=== PATIENT | male | born 1950 | race American Indian/Alaskan Native ===

== ENCOUNTER 2016-12-22 12:05 | Inpatient (IN) | payer MEDICARE, OTHER ==
[2016-12-21 10:19] LABS: Eosinophils % (Auto) 2.4 % (0.0-4.3); Hemoglobin 14.7 gm/dl (11.8-15.2); Mean Corpuscular HGB Conc 33 % (32-34); Mean Corpuscular Hemoglobin 27 pg (28-32); Mean Corpuscular Volume 83 fl (84-94); Platelet Count 213 K/mm3 (140-440); Red Blood Count 5.45 M/mm3 (3.65-5.03); Red Cell Distribution Width 14.2 % (13.2-15.2); White Blood Count 5.3 K/mm3 (4.5-11.0)
--- NOTE | 2016-12-21 10:19 | Anesthesia Consultation ---
Anesthesia Consult and Med Hx Date of service: 12/21/16 - Airway Anesthetic Teeth Evaluation: Good ROM Head & Neck: Adequate Mental/Hyoid Distance: Adequate Mallampati Class: Class III Intubation Access Assessment: Possibly Difficult - Pre-Operative Health Status ASA Pre-Surgery Classification: ASA3 Proposed Anesthetic Plan: General - Pulmonary Hx Smoking: Yes (former) - Cardiovascular System Hx Hypertension: Yes Hx Coronary Artery Disease: No (high cholesterol) - Central Nervous System Hx Psychiatric Problems: No - Endocrine Hx Renal Disease: Yes (BPH, bladder stones) Hx Non-Insulin Dependent Diabetes: Yes - Other Systems Hx Cancer: No Hx Obesity: Yes (BMI 37.7)
[2016-12-21 10:32] LABS: Partial Thromboplastin Time 30.8 Sec. (24.2-36.6)
[2016-12-21 10:33] LABS: Alanine Aminotransferase 21 units/L (7-56); Albumin 3.7 g/dL (3.9-5); Albumin/Globulin Ratio 1.1 %; Alkaline Phosphatase 62 units/L (35-129); Anion Gap 17 mmol/L; BUN/Creatinine Ratio 24.28; Blood Urea Nitrogen 17 mg/dL (9-20); Calcium 8.8 mg/dL (8.4-10.2); Carbon Dioxide 28 mmol/L (22-30); Chloride 98.5 mmol/L (98-107); Glucose 165 mg/dL (75-100); Potassium 3.2 mmol/L (3.6-5.0); Sodium 140 mmol/L (137-145); Total Protein 7.2 g/dL (6.3-8.2)
[~2016-12-22 12:05] MED LIST: NACL 0.9% 1000 ML 1,000 ML IV SCH; PEPCID IV NR; VERSED IV NR
[2016-12-22] MEDS ORDERED: ZOFRAN IV NR (13:11)
[2016-12-22] MEDS ORDERED: NACL BACTERIOSTATIC INFILTRATI ONE (13:32)
[2016-12-22] MEDS ORDERED: SUBLIMAZE ONE (13:55)
[2016-12-22] MEDS ORDERED: DIPRIVAN 10 MG/ML IV ONE (13:56)
[2016-12-22] MEDS ORDERED: XYLOCAINE MPF 2% ONE (13:56)
--- NOTE | 2016-12-22 14:28 | Anesthesia Day of Surgery ---
Anesthesia Day of Surgery - Day of Surgery Patient Examined: Yes Patient H&P Reviewed: Yes Patient is NPO: Yes
[2016-12-22] MEDS ORDERED: DECADRON ONE (15:00)
[2016-12-22] MEDS ORDERED: ANCEF/STERILE WATER 2 GM/20 ML IV NR (15:00)
[2016-12-22] MEDS ORDERED: ZOFRAN ONE (15:01)
[2016-12-22] MEDS ORDERED: SORBITOL-MANNITOL IRRIG IR ONE ×2 (15:02)
[2016-12-22] MEDS ORDERED: NACL 0.9% 1000 ML 1,000 ML ONE ×2 (15:49→17:54)
[2016-12-22] MEDS ORDERED: AMBIEN PO PRN (16:21)
[2016-12-22] MEDS ORDERED: D50W (25GM) Syringe IV PRN (16:21)
[2016-12-22] MEDS ORDERED: ZOFRAN IV PRN (16:21)
--- NOTE | 2016-12-22 16:21 | Short Stay Summary ---
Short Stay Documentation Date of service: 12/22/16 - History H&P: obtained from office - Allergies and Medications Current Medications: Allergies No Known Allergies Allergy (Unverified 12/21/16 06:39) Home Medications Medication Instructions Recorded Confirmed Last Taken Type Amlodipine/Valsartan/Hcthiazid 1 tab PO DAILY 12/21/16 12/21/16 12/21/16 23:45 History [Exforge Hct 10-160-25 mg Tab] AtorvaSTATin [Lipitor] 40 mg PO QHS 12/21/16 12/21/16 12/21/16 History Dapagliflozin Propanediol [Farxiga] 10 mg PO DAILY 12/21/16 12/21/16 12/21/16 History Glimepiride [Amaryl] 4 mg PO BID 12/21/16 12/21/16 12/21/16 History Active Medications Cefazolin Sodium (Ancef/Sterile Water 2 Gm/20 Ml) 2 gm IV PREOP NR Stop: 12/22/16 23:00 Hydromorphone HCl (Dilaudid) 0.5 mg IV Q10MIN PRN PRN Reason: Pain , Severe (7-10) Stop: 12/22/16 23:59 Sodium Chloride (Nacl 0.9% 1000 Ml) 1,000 mls @ 100 mls/hr IV DIRECT FLETCHER Last Admin: 12/22/16 13:53 Dose: 100 mls/hr Midazolam HCl (Versed) 2 mg IV PREOP NR Stop: 12/22/16 23:59 Last Admin: 12/22/16 14:04 Dose: 2 mg Ondansetron HCl (Zofran) 4 mg IV ONCE NR Stop: 12/22/16 23:59 - Brief post op/procedure progress note Date of procedure: 12/22/16 Pre-op diagnosis: BPH, BLADDER STONES Post-op diagnosis: same Procedure: cysto, cystogram, TURP Anesthesia: GETA Surgeon: ANDREAS RAYMOND Estimated blood loss: minimal Pathology: list Specimen disposition: to lab Condition: stable (PROSTATE CHIPS) - Hospital course Hospital course: CIPRO & NORCO ON CHART see dc summary - Disposition Disposition: DC-01 TO HOME OR SELFCARE Short Stay Discharge Plan Follow up with: SHEA OLSON MD [Primary Care Provider] - 7 Days
[2016-12-22] MEDS: DILAUDID IV PRN ×5 (16:30→23:21)
--- NOTE | 2016-12-22 16:39 | Post Anesthesia Evaluation ---
- Post Anesthesia Evaluation Patient Participated: Yes Airway Patent: Yes Stable Respiratory Function: Yes Nausea/Vomiting: No Temp > 96.8F: Yes Pain Manageable: Yes Adequeate Hydration: Yes Anesthesia Complications: No
[2016-12-22] MEDS ORDERED: NEO SYNEPHRINE/NS Syringe(OR USE) IV ONE (17:00)
[2016-12-22 17:28] LABS: Basophils % (Auto) 0.4 % (0.0-1.8); Eosinophils % (Auto) 0.5 % (0.0-4.3); Hematocrit 39.3 % (35.5-45.6); Hemoglobin 12.9 gm/dl (11.8-15.2); Mean Corpuscular HGB Conc 33 % (32-34); Mean Corpuscular Hemoglobin 28 pg (28-32); Mean Corpuscular Volume 83 fl (84-94); Platelet Count 183 K/mm3 (140-440); Red Blood Count 4.71 M/mm3 (3.65-5.03); Red Cell Distribution Width 14.2 % (13.2-15.2); White Blood Count 5.9 K/mm3 (4.5-11.0)
[2016-12-22 17:41] LABS: Anion Gap 14 mmol/L; Blood Urea Nitrogen 14 mg/dL (9-20); Carbon Dioxide 29 mmol/L (22-30); Chloride 100.5 mmol/L (98-107); Glucose 133 mg/dL (75-100); Potassium 3.2 mmol/L (3.6-5.0); Sodium 140 mmol/L (137-145)
--- NOTE | 2016-12-22 21:51 | Operative Report ---
PREOPERATIVE DIAGNOSIS: Benign prostatic hypertrophy, multiple bladder stones, large volume. POSTOPERATIVE DIAGNOSES: Benign prostatic hypertrophy, multiple bladder stones, large volume. PROCEDURE: Cystoscopy, electrohydraulic lithotripsy of multiple bladder stones, transurethral resection of the prostate, cystogram. SURGEON: Simon Marquez MD ANESTHESIA: General. ESTIMATED BLOOD LOSS: 50 mL. FLUIDS: Crystalloid. COMPLICATIONS: No complications. INDICATIONS: This patient is a 66-year-old gentleman seen in the office for hematuria. Evaluation revealed bladder stones and enlarged prostate. Risks, benefits, and complications were explained. The patient agreed to proceed with surgical intervention. He also has a history of diabetes. DESCRIPTION OF PROCEDURE: The patient was taken to the operative suite, placed in a supine position. After adequate general anesthesia, placed in a dorsal lithotomy position, prepped and draped in a sterile fashion. Rectal exam was benign. Cystourethroscopy was performed with 24-Beninese Storz cystoscope. No urethral abnormalities. His prostate displayed trilobar prostatic obstruction. His bladder had multiple large bladder stones, probably a volume of 5 cm total. Due to edema, the ureteral orifices could not be appreciated. Using a 9 Beninese EHL probe starting at energy of 2 and a rate of 5, electrohydraulic lithotripsy was performed that over approximately 15-20 minutes, I was able to break up the stone to allow removal with the MyWerxik evacuator. At this point, I used the 27-Beninese resectoscope and loop with the cutting and coag on 160 and 60. Transurethral resection of the prostate was performed in a systematic fashion removing the median lobe and the right and left lateral lobes respectively. The chips were evacuated out with the Ellik evacuator. Upon completion, the veru and external sphincter were intact. A 24-Beninese 3-way catheter with 50 mL in the balloon was left indwelling and irrigated clear, had pink-tinged urine. He was extubated and taken to recovery room. He will be observed overnight and go home on [employer] and [place]. JOB# [id number] C/NTS
[2016-12-22] MEDS: NACL 0.9% 1000 ML 1,000 ML IV SCH (22:20)
[2016-12-22] MEDS: NACL 0.9% IR SCH (22:21)
--- NOTE | 2016-12-22 23:51 | Consultation ---
History of Present Illness - Reason for Consult Consult date: 12/22/16 Medical management Requesting physician: ANDREAS RAYMOND - History of Present Illness S/p Turp Past History Past Medical History: diabetes, hypertension, hyperlipidemia Past Surgical History: TURP Social history: lives with family, smoking Family history: hypertension Medications and Allergies Allergies Allergy/AdvReac Type Severity Reaction Status Date / Time No Known Allergies Allergy Unverified 12/21/16 06:39 Home Medications Medication Instructions Recorded Confirmed Last Taken Type Amlodipine/Valsartan/Hcthiazid 1 tab PO DAILY 12/21/16 12/21/16 12/21/16 23:45 History [Exforge Hct 10-160-25 mg Tab] AtorvaSTATin [Lipitor] 40 mg PO QHS 12/21/16 12/21/16 12/21/16 History Dapagliflozin Propanediol [Farxiga] 10 mg PO DAILY 12/21/16 12/21/16 12/21/16 History Glimepiride [Amaryl] 4 mg PO BID 12/21/16 12/21/16 12/21/16 History Active Meds: Active Medications Acetaminophen/Hydrocodone Bitart ([place] 5/325) 2 each PO Q4H PRN PRN Reason: Pain, Moderate (4-6) Amlodipine Besylate (Norvasc) 10 mg PO DAILY FLETCHER Atorvastatin Calcium (Lipitor) 40 mg PO QHS FLETCHER Dextrose (D50w (25gm) Syringe) 50 ml IV PRN PRN PRN Reason: Hypoglycemia Glimepiride (Amaryl) 4 mg PO BID FLETCHER Hydrochlorothiazide (Hctz) 25 mg PO QDAY FLETCHER Hydromorphone HCl (Dilaudid) 0.5 mg IV Q10MIN PRN PRN Reason: Pain , Severe (7-10) Stop: 12/22/16 23:59 Last Admin: 12/22/16 23:21 Dose: 0.5 mg Sodium Chloride (Nacl 0.9% 1000 Ml) 1,000 mls @ 100 mls/hr IV DIRECT FLETCHER Last Admin: 12/22/16 13:53 Dose: 100 mls/hr Cefazolin Sodium (Ancef/Ns 1 Gm/50 Ml) 1 gm in 50 mls @ 100 mls/hr IV Q8H FLETCHER PRN Reason: Protocol Stop: 12/23/16 08:29 Sodium Chloride (Nacl 0.9% 1000 Ml) 1,000 mls @ 100 mls/hr IV DIRECT FLETCHER Last Admin: 12/22/16 22:20 Dose: 100 mls/hr Insulin Aspart (Novolog) 0 units SUB-Q ACHS FLETCHER PRN Reason: Protocol Midazolam HCl (Versed) 2 mg IV PREOP NR Stop: 12/22/16 23:59 Last Admin: 12/22/16 14:04 Dose: 2 mg Miscellaneous Medication (Dapagliflozin Propanediol [Farxiga]) 10 mg PO DAILY FLETCHER Morphine Sulfate (Morphine) 2 mg IV Q4H PRN PRN Reason: Pain, Moderate (4-6) Ondansetron HCl (Zofran) 4 mg IV ONCE NR Stop: 12/22/16 23:59 Ondansetron HCl (Zofran) 4 mg IV Q8H PRN PRN Reason: Nausea And Vomiting Sodium Chloride (Nacl 0.9%) 2,000 ml IR DIRECT FLETCHER Last Admin: 12/22/16 22:21 Dose: 2,000 ml Valsartan (Diovan) 160 mg PO QDAY FLETCHER Zolpidem Tartrate (Ambien) 5 mg PO QHS PRN PRN Reason: Sleep Review of Systems All systems: negative Exam - Constitutional Vitals: Temp Pulse Resp BP Pulse Ox 97.5 F L 73 16 122/67 95 12/22/16 20:00 12/22/16 20:00 12/22/16 23:21 12/22/16 20:00 12/22/16 20:00 General appearance: Present: no acute distress, well-nourished - EENT Eyes: Present: PERRL ENT: hearing intact, clear oral mucosa - Neck Neck: Present: supple, normal ROM - Respiratory Respiratory effort: normal Respiratory: bilateral: CTA - Cardiovascular Heart Sounds: Present: S1 & S2. Absent: rub, click - Extremities Extremities: pulses symmetrical, No edema Peripheral Pulses: within normal limits - Abdominal General gastrointestinal: Present: soft, non-tender, non-distended, normal bowel sounds Male genitourinary: Present: normal - Integumentary Integumentary: Present: clear, warm, dry - Musculoskeletal Musculoskeletal: gait normal, strength equal bilaterally - Psychiatric Psychiatric: appropriate mood/affect, intact judgment & insight - Neurologic Neurologic: CNII-XII intact, moves all extremities Results - Labs CBC & Chem 7: 12/24/16 05:53 12/23/16 11:06 Labs: Abnormal lab results 12/22/16 12/22/16 12/22/16 Range/Units 13:48 16:53 17:16 MCV 83 L (84-94) fl Lymph # 1.1 L (1.2-5.4) K/mm3 Seg Neutrophils % 76.6 H (40.0-70.0) % Potassium (3.6-5.0) mmol/L Glucose (75-100) mg/dL POC Glucose 170 H 122 H (70-105) Calcium (8.4-10.2) mg/dL 12/22/16 12/22/16 Range/Units 17:16 21:22 MCV (84-94) fl Lymph # (1.2-5.4) K/mm3 Seg Neutrophils % (40.0-70.0) % Potassium 3.2 L (3.6-5.0) mmol/L Glucose 133 H (75-100) mg/dL POC Glucose 164 H (70-105) Calcium 8.0 L (8.4-10.2) mg/dL Assessment and Plan - Patient Problems (1) S/P TURP Status: Acute Plan to address problem: Bleeding present but better (2) HTN (hypertension) Status: Chronic Qualifiers: Hypertension type: essential hypertension Qualified Code(s): I10 - Essential (primary) hypertension Plan to address problem: Cont Antihypertensives (3) HLD (hyperlipidemia) Status: Chronic Qualifiers: Hyperlipidemia type: mixed hyperlipidemia Qualified Code(s): E78.2 - Mixed hyperlipidemia Plan to address problem: Cont Statins (4) T2DM (type 2 diabetes mellitus) Status: Chronic Qualifiers: Diabetes mellitus complication status: without complication Diabetes mellitus complication detail: D Diabetic retinopathy severity: D Proliferative retinopathy type: P Diabetes mellitus macular edema: D Diabetes mellitus laborer marine terminal insulin use: D Laterality: L Chronic kidney disease stage: C Plan to address problem: Cont Accucheks and coverage (5) DVT prophylaxis Status: Acute Plan to address problem: Scd's
[2016-12-23] MEDS: NOVOLOG SUB-Q SCH ×5 (02:08→21:37)
[2016-12-23] MEDS: AMARYL PO SCH ×3 (02:09→21:37)
[2016-12-23 03:09] LABS: Basophils % (Auto) 0.2 % (0.0-1.8); Hematocrit 40.5 % (35.5-45.6); Hemoglobin 13.5 gm/dl (11.8-15.2); Mean Corpuscular HGB Conc 33 % (32-34); Mean Corpuscular Hemoglobin 28 pg (28-32); Mean Corpuscular Volume 83 fl (84-94); Platelet Count 176 K/mm3 (140-440); Red Blood Count 4.89 M/mm3 (3.65-5.03); Red Cell Distribution Width 14.6 % (13.2-15.2); White Blood Count 9.7 K/mm3 (4.5-11.0)
[2016-12-23 03:23] LABS: Anion Gap 15 mmol/L; BUN/Creatinine Ratio 18.57; Blood Urea Nitrogen 13 mg/dL (9-20); Calcium 7.7 mg/dL (8.4-10.2); Carbon Dioxide 26 mmol/L (22-30); Chloride 98.2 mmol/L (98-107); Glucose 152 mg/dL (75-100); Potassium 3.4 mmol/L (3.6-5.0); Sodium 136 mmol/L (137-145)
[2016-12-23] MEDS: NACL 0.9% IR SCH ×4 (03:27→21:45)
[2016-12-23] MEDS: ANCEF/NS 1 GM/50 ML 1 GM/50 ML BAG IV SCH ×2 (05:45→17:21)
[2016-12-23] MEDS: MORPHINE IV PRN (06:19)
[2016-12-23] MEDS ORDERED: NACL 0.9% 1,000 ML IR ONE ×4 (09:32→17:24)
[2016-12-23] MEDS ORDERED: HCTHIAZID PO SCH (10:00)
[2016-12-23] MEDS ORDERED: AMLODIPINE PO SCH (10:00)
[2016-12-23] MEDS ORDERED: NON-FORMULARY (Dapagliflozin Propanediol [Farxiga] 10 MG) PO SCH (10:00)
[2016-12-23] MEDS ORDERED: VALSARTAN PO SCH (10:00)
--- NOTE | 2016-12-23 10:05 | Progress Note ---
Assessment and Plan fiorella occ bloody cath manually irrigared clots out adv diet observe x 24 hrs Subjective Date of service: 12/23/16 Principal diagnosis: post turp Objective - Constitutional Vitals: Vital Signs - 12hr 12/22/16 12/22/16 12/22/16 23:21 23:47 23:51 Temperature 97.2 F L Pulse Rate 74 Respiratory 16 20 16 Rate Blood Pressure 128/71 O2 Sat by Pulse 98 Oximetry 12/23/16 12/23/16 04:23 08:14 Temperature 97.8 F 97.5 F L Pulse Rate 73 Respiratory 20 18 Rate Blood Pressure 130/68 127/66 O2 Sat by Pulse 98 Oximetry General appearance: Present: no acute distress - Respiratory Respiratory effort: normal Extremities: no ischemia - Gastrointestinal General gastrointestinal: Present: soft, non-tender - Labs CBC & Chem 7: 12/23/16 02:52 12/23/16 02:52 Labs: Abnormal lab results 12/22/16 12/22/16 12/22/16 Range/Units 13:48 16:53 17:16 MCV 83 L (84-94) fl Lymph % (Auto) (13.4-35.0) % Lymph # 1.1 L (1.2-5.4) K/mm3 Seg Neutrophils % 76.6 H (40.0-70.0) % Seg Neutrophils # (1.8-7.7) K/mm3 Potassium (3.6-5.0) mmol/L Creatinine (0.8-1.5) mg/dL Glucose (75-100) mg/dL POC Glucose 170 H 122 H (70-105) Calcium (8.4-10.2) mg/dL 12/22/16 12/22/16 12/23/16 Range/Units 17:16 21:22 02:52 MCV 83 L (84-94) fl Lymph % (Auto) 10.6 L (13.4-35.0) % Lymph # 1.0 L (1.2-5.4) K/mm3 Seg Neutrophils % 82.1 H (40.0-70.0) % Seg Neutrophils # 8.0 H (1.8-7.7) K/mm3 Potassium 3.2 L (3.6-5.0) mmol/L Creatinine (0.8-1.5) mg/dL Glucose 133 H (75-100) mg/dL POC Glucose 164 H (70-105) Calcium 8.0 L (8.4-10.2) mg/dL 12/23/16 Range/Units 02:52 MCV (84-94) fl Lymph % (Auto) (13.4-35.0) % Lymph # (1.2-5.4) K/mm3 Seg Neutrophils % (40.0-70.0) % Seg Neutrophils # (1.8-7.7) K/mm3 Potassium (3.6-5.0) mmol/L Creatinine 0.7 L (0.8-1.5) mg/dL Glucose 152 H (75-100) mg/dL POC Glucose (70-105) Calcium 7.7 L (8.4-10.2) mg/dL
--- NOTE | 2016-12-23 10:18 | Fluoroscopy Report ---
CYSTOGRAM STATIC, ONE VIEW History: Bladder stones. Findings: Fluoroscopy was provided by radiology during cystogram by urology. 3 fluoroscopic images were captured. The images demonstrate at least 2 large filling defects measuring up to 4-5 cm which could represent bladder stones. There is mild trabeculation of the bladder wall. No evidence for extravasation or reflux into the ureters. Impression: Multiple bladder stones.
[2016-12-23] MEDS: NORCO 5/325 PO PRN ×2 (10:58→19:19)
[2016-12-23] MEDS: DIOVAN PO SCH (10:59)
[2016-12-23] MEDS: HCTZ PO SCH (10:59)
[2016-12-23] MEDS: NORVASC PO SCH (11:00)
[2016-12-23 11:59] LABS: Alanine Aminotransferase 14 units/L (7-56); Albumin 3.2 g/dL (3.9-5); Albumin/Globulin Ratio 0.9 %; Alkaline Phosphatase 55 units/L (35-129); Anion Gap 16 mmol/L; BUN/Creatinine Ratio 16.25; Blood Urea Nitrogen 13 mg/dL (9-20); Calcium 8.1 mg/dL (8.4-10.2); Carbon Dioxide 26 mmol/L (22-30); Chloride 100.1 mmol/L (98-107); Glucose 198 mg/dL (75-100); Potassium 3.3 mmol/L (3.6-5.0); Sodium 139 mmol/L (137-145); Total Protein 6.8 g/dL (6.3-8.2)
[2016-12-23] MEDS: K-DUR PO SCH (13:25)
--- NOTE | 2016-12-23 17:29 | Event Note ---
Date: 12/23/16 cysto, cystogram, TURP, removal large bladder stone>5cm 5pm----irrigates well---pink, no clots, + spasm check cbc in am
[2016-12-23] MEDS: NACL 0.9% 1000 ML 1,000 ML IV SCH (21:50)
--- NOTE | 2016-12-23 22:02 | Progress Note ---
Assessment and Plan - Patient Problems (1) S/P TURP Status: Acute Plan to address problem: Bleeding present but better (2) HTN (hypertension) Status: Chronic Qualifiers: Hypertension type: essential hypertension Qualified Code(s): I10 - Essential (primary) hypertension Plan to address problem: Cont Antihypertensives (3) HLD (hyperlipidemia) Status: Chronic Qualifiers: Hyperlipidemia type: mixed hyperlipidemia Qualified Code(s): E78.2 - Mixed hyperlipidemia Plan to address problem: Cont Statins (4) T2DM (type 2 diabetes mellitus) Status: Chronic Qualifiers: Diabetes mellitus complication status: without complication Diabetes mellitus complication detail: D Diabetic retinopathy severity: D Proliferative retinopathy type: P Diabetes mellitus macular edema: D Diabetes mellitus terminal operations manager insulin use: D Laterality: L Chronic kidney disease stage: C Plan to address problem: Cont Accucheks and coverage (5) DVT prophylaxis Status: Acute Plan to address problem: Scd's History Interval history: Post op doing well.S/p Turp with bleeding which has subsided Hospitalist Physical - Constitutional Vitals: Temp Pulse Resp BP Pulse Ox 98.7 F 80 18 122/64 98 12/23/16 17:00 12/23/16 17:00 12/23/16 17:00 12/23/16 17:00 12/23/16 04:23 General appearance: Present: no acute distress - EENT Eyes: Present: PERRL, EOM intact - Neck Neck: Present: supple, normal ROM, rigidity - Respiratory Respiratory effort: normal Respiratory: bilateral: CTA - Cardiovascular Heart rate: 78 Rhythm: regular - Extremities Extremities: no ischemia, pulses intact, pulses symmetrical Peripheral Pulses: within normal limits - Abdominal General gastrointestinal: soft, non-tender, non-distended - Integumentary Integumentary: Present: clear, warm - Psychiatric Psychiatric: appropriate mood/affect, intact judgment & insight, cooperative - Neurologic Neurologic: CNII-XII intact, moves all extremities, gait normal - Allied Health Allied health notes reviewed: nursing, case management Results - Labs CBC & Chem 7: 12/24/16 05:53 12/23/16 11:06 Labs: Laboratory Last Values WBC 9.7 K/mm3 (4.5-11.0) 12/23/16 02:52 RBC 4.89 M/mm3 (3.65-5.03) 12/23/16 02:52 Hgb 13.5 gm/dl (11.8-15.2) 12/23/16 02:52 Hct 40.5 % (35.5-45.6) 12/23/16 02:52 MCV 83 fl (84-94) L 12/23/16 02:52 MCH 28 pg (28-32) 12/23/16 02:52 MCHC 33 % (32-34) 12/23/16 02:52 RDW 14.6 % (13.2-15.2) 12/23/16 02:52 Plt Count 176 K/mm3 (140-440) 12/23/16 02:52 Lymph % (Auto) 10.6 % (13.4-35.0) L 12/23/16 02:52 Metcalfe % (Auto) 7.1 % (0.0-7.3) 12/23/16 02:52 Eos % (Auto) 0.0 % (0.0-4.3) 12/23/16 02:52 Baso % (Auto) 0.2 % (0.0-1.8) 12/23/16 02:52 Lymph # 1.0 K/mm3 (1.2-5.4) L 12/23/16 02:52 Metcalfe # 0.7 K/mm3 (0.0-0.8) 12/23/16 02:52 Eos # 0.0 K/mm3 (0.0-0.4) 12/23/16 02:52 Baso # 0.0 K/mm3 (0.0-0.1) 12/23/16 02:52 Seg Neutrophils % 82.1 % (40.0-70.0) H 12/23/16 02:52 Seg Neutrophils # 8.0 K/mm3 (1.8-7.7) H 12/23/16 02:52 PT 13.1 Sec. (12.2-14.9) 12/21/16 09:14 INR 1.00 (0.87-1.13) 12/21/16 09:14 APTT 30.8 Sec. (24.2-36.6) 12/21/16 09:14 Sodium 139 mmol/L (137-145) 12/23/16 11:06 Potassium 3.3 mmol/L (3.6-5.0) L 12/23/16 11:06 Chloride 100.1 mmol/L (98-107) 12/23/16 11:06 Carbon Dioxide 26 mmol/L (22-30) 12/23/16 11:06 Anion Gap 16 mmol/L 12/23/16 11:06 BUN 13 mg/dL (9-20) 12/23/16 11:06 Creatinine 0.8 mg/dL (0.8-1.5) 12/23/16 11:06 Estimated GFR > 60 ml/min 12/23/16 11:06 BUN/Creatinine Ratio 16.25 % 12/23/16 11:06 Glucose 198 mg/dL (75-100) H 12/23/16 11:06 POC Glucose 189 (70-105) H 12/23/16 18:08 Calcium 8.1 mg/dL (8.4-10.2) L 12/23/16 11:06 Total Bilirubin 0.70 mg/dL (0.1-1.2) 12/23/16 11:06 AST 18 units/L (5-40) 12/23/16 11:06 ALT 14 units/L (7-56) 12/23/16 11:06 Alkaline Phosphatase 55 units/L (35-129) 12/23/16 11:06 Total Protein 6.8 g/dL (6.3-8.2) 12/23/16 11:06 Albumin 3.2 g/dL (3.9-5) L 12/23/16 11:06 Albumin/Globulin Ratio 0.9 % 12/23/16 11:06 Blood Type O POSITIVE 12/22/16 13:29 Antibody Screen Negative 12/22/16 13:29
[2016-12-24] MEDS: NACL 0.9% IR SCH ×2 (02:27→02:28)
[2016-12-24] MEDS: MORPHINE IV PRN (04:27)
[2016-12-24] MEDS: NORCO 5/325 PO PRN ×2 (04:32→12:47)
[2016-12-24 06:16] LABS: Basophils % (Auto) 0.2 % (0.0-1.8); Eosinophils % (Auto) 1.4 % (0.0-4.3); Hematocrit 33.1 % (35.5-45.6); Hemoglobin 11.1 gm/dl (11.8-15.2); Mean Corpuscular HGB Conc 33 % (32-34); Mean Corpuscular Hemoglobin 28 pg (28-32); Mean Corpuscular Volume 84 fl (84-94); Platelet Count 177 K/mm3 (140-440); Red Blood Count 3.97 M/mm3 (3.65-5.03); Red Cell Distribution Width 14.4 % (13.2-15.2); White Blood Count 8.9 K/mm3 (4.5-11.0)
[2016-12-24 08:24] VITALS: BP 105/41
--- NOTE | 2016-12-24 09:00 | Discharge Summary ---
Providers - Providers Date of Admission: 12/22/16 16:21 Date of discharge: 12/24/16 Attending physician: ANDREAS RAYMOND 12/22/16 Consult to Case Management [CONS] Routine Services Needed at Discharge: Home Health Services Notified:: CABLE SPLICER Comment:: [facility]AN MANAGEMENT & ASSIST WITH DAILY NEEDS 12/22/16 16:21 Consult to Physician [CONS] Urgent Consulting Provider: SHEA OLSON Reason For Exam: MGNT OF [facility] & [facility] Place consult to:: DR. SHEA OLSON Notified:: CALLED If yes, spoke with:: Y Primary care physician: SHEA OLSON Hospitalization Reason for admission: bph Procedures: cysto, TRUP, removal baladder stone Hospital course: standard TURP with stone removal post bleeding with regan irrigation clear today home with regan at bedside Disposition: DC-01 TO HOME OR SELFCARE Core Measure Documentation - Palliative Care Palliative Care/ Comfort Measures: Not Applicable - Core Measures Any of the following diagnoses?: none - VTE Discharge Requirements Deep Vein Thrombosis/Pulmonary Embolism Present on Admission: No Has pt received <5 days of overlap therapy or INR<2.0: No Anticoagulant overlap therapy prescribed at discharge: No Contraindication No Overlap Therapy order at DC: Medical Contraindication - Acute AL Discharge Requirements Aspirin at discharge: No Reason for no aspirin on DC: Surgical contraindication JODI/ARB for LVSD if EF <40%: Not Applicable Reason for no JODI/ARB: Medical contraindication Beta max at discharge: No Reason for no beta max on DC: Medical contraindication Statin for LDL = or >100 mg/dl on DC: Not Applicable Reason for no statin on DC: Surgical contraindication - Heart Failure Discharge Requirements JODI/ARB for LVSD if EF <40%: Not Applicable Reason for no JODI/ARB: Medical contraindication Beta max at discharge: No Reason for no beta max on DC: Medical contraindication - Stroke Discharge Requirements Statin for LDL = or >70 mg/dl on DC: Not Applicable Reason for no statin on DC: Medical Contraindication Anticoag for atrial fib/atrial flutter: Not Applicable Reason for no anticoag for AF/F on DC: Not Indicated Antithrombotic for ischemic stroke: No Reason for no antithrombotic on DC: Medical Contraindication Exam - Constitutional Vitals: Temp Pulse Resp BP Pulse Ox 98.4 F 80 20 105/41 97 12/24/16 07:24 12/24/16 07:24 12/24/16 07:24 12/24/16 07:24 12/24/16 07:24 General appearance: Present: no acute distress, well-nourished - EENT Eyes: Present: PERRL ENT: hearing intact, clear oral mucosa - Neck Neck: Present: supple, normal ROM - Respiratory Respiratory effort: normal Respiratory: bilateral: CTA - Cardiovascular Heart Sounds: Present: S1 & S2. Absent: rub, click - Extremities Extremities: pulses symmetrical, No edema Peripheral Pulses: within normal limits - Abdominal General gastrointestinal: Present: soft, non-tender, non-distended, normal bowel sounds Male genitourinary: Present: normal - Integumentary Integumentary: Present: clear, warm, dry - Musculoskeletal Musculoskeletal: gait normal, strength equal bilaterally - Psychiatric Psychiatric: appropriate mood/affect, intact judgment & insight - Neurologic Neurologic: CNII-XII intact, moves all extremities Plan Diet: diabetic Wound: open to air Follow up with: SHEA OLSON MD [Primary Care Provider] - 7 Days
--- NOTE | 2016-12-24 09:03 | Query-Anemia ---
Rosa Constantino____Michelle Date:___12/24/16 Grants Manager/CDS:____Rohit Phone#:__[phone] Exercise your independent professional judgment when responding to this query. Questions asked do not imply a particular answer is desired or expected. We greatly appreciate your clarification on this issue. Clinical Documentation States: 66 year old male was admitted on 12/22/16. The Operative report (Dr. Marquez 12/22/16) states " Preoperative diagnosis: Benign prostatic hypertrophy, multiple bladder stones, large volume Procedure: Cystoscopy, electrohydraulic lithotripsy of multiple bladder stones, transurethral resection of the prostate, cystogram " The hospitalist progress note (Dr. Martinez 12/23/16) states " Assessment and Plan: ( 1) HTN (hypertension) (2) HLD (hyperlipidemia) (3) T2DM (type 2 diabetes mellitus) " Clinical Findings Show: 12/23/16 12/24/16 Hgb: 13.5 11.1 Hct: 40.5 33.1 Etiology: [ ] Precipitous Drop in Hemoglobin [ ] Precipitous Drop in Hematocrit [x ] Anemia due to acute blood loss [ ] Anemia due to chronic blood loss [ ] Anemia secondary to ESRD [ ] Anemia secondary to neoplastic disease [ ] Iron deficiency anemia due to malabsorption [ ] GI Bleed from: [ ] Anemia of chronic disease ,Other: [ ] Other: [ ] Unable to determine [ ] Comment/Explanation: Present on Admission: [ ] Yes (Y) [ ] Clinically undeterminable (W) [x ] No (N) Please also document response in your Progress Notes and/or Discharge Summary and indicate if the condition was present on admission. MTDD
[2016-12-24] MEDS: HCTZ PO SCH (10:50)
[2016-12-24] MEDS: DIOVAN PO SCH (10:50)
[2016-12-24] MEDS: NORVASC PO SCH (10:50)
[2016-12-24] MEDS: AMARYL PO SCH (12:29)
[2016-12-24] MEDS: K-DUR PO SCH (12:29)
== END 2016-12-24 15:45 | disposition home health service (06) | DRG 666 ==
LOC: OR 12:05 → 3B-SURG 16:21
PROVIDERS: ADMIT Urology; ATTEND Urology
PROC: 0VB08ZZ Excision of Prostate, Via Natural or Artificial Opening Endoscopic (ICD-10-PCS; principal; 2016-12-22)
PROC: 0TCB8ZZ Extirpation of Matter from Bladder, Via Natural or Artificial Opening Endoscopic (ICD-10-PCS; 2016-12-22)
DX: N21.0 Calculus in bladder (principal); D62 Acute posthemorrhagic anemia; N40.0 Benign prostatic hyperplasia without lower urinary tract symptoms; E11.9 Type 2 diabetes mellitus without complications; E66.9 Obesity, unspecified; I10 Essential (primary) hypertension; E78.5 Hyperlipidemia, unspecified; Z82.49 Family history of ischemic heart disease and other diseases of the circulatory system; Z68.37 Body mass index [BMI] 37.0-37.9, adult; Z87.891 Personal history of nicotine dependence
CPT/HCPCS: 36415; 74430; 80048; 80053; 82962; 85025; 85610; 85730; 86850; 86900; 86901; 88305; A4217; A9270-GY; C1758; J0690; J1100; J1170; J2250; J2270; J2370; J2405; J2704; J3010; J7030; Q9967

== ENCOUNTER 2020-06-04 14:00 | Outpatient (CLI) | payer MEDICARE, OTHER | END 2020-06-04 14:01 | disposition home or self-care (01) | LOC: WOUND 14:00 | PROVIDERS: ATTEND Surgery | DX: I87.313 Chronic venous hypertension (idiopathic) with ulcer of bilateral lower extremity (principal); L97.812 Non-pressure chronic ulcer of other part of right lower leg with fat layer exposed; L97.822 Non-pressure chronic ulcer of other part of left lower leg with fat layer exposed; I10 Essential (primary) hypertension; Z87.891 Personal history of nicotine dependence | CPT/HCPCS: 11042; G0463; 99205 ==

== ENCOUNTER 2020-06-10 10:25 | Outpatient (CLI) | payer MEDICARE, OTHER ==
[2020-06-10] MEDS ORDERED: LIDOCAINE (4%) 40 MG/ML TOPICAL SOLN 50 ML BOTTLE TP ONE (10:46)
== END 2020-06-10 10:26 | disposition home or self-care (01) ==
LOC: WOUND 10:25
PROVIDERS: ATTEND Surgery
DX: I87.313 Chronic venous hypertension (idiopathic) with ulcer of bilateral lower extremity (principal); L97.812 Non-pressure chronic ulcer of other part of right lower leg with fat layer exposed; L97.822 Non-pressure chronic ulcer of other part of left lower leg with fat layer exposed; I10 Essential (primary) hypertension; Z87.891 Personal history of nicotine dependence

== ENCOUNTER 2020-06-13 09:58 | Outpatient (CLI) | payer MEDICARE, OTHER ==
--- NOTE | 2020-06-13 13:36 | Vascular Lab Report ---
DUPLEX DOPPLER LOWER EXTREMITY VEINS, BILATERAL INDICATION: CHRONIC HYPERTENSION WITH ULCER OF BILATERAL LE. TECHNIQUE: Duplex doppler imaging was performed through the veins of both lower extremities using ve nous compression and other maneuvers. COMPARISON: No relevant prior imaging study available. FINDINGS: Right Common femoral vein: Negative. Right Superficial femoral vein: Negative. Right Popliteal vein: Negative. Right Calf veins: Negative. Left Common femoral vein: Negative. Left Superficial femoral vein: Negative. Left Popliteal vein: Negative. Left Calf veins: Negative. Additional findings: The technologist notes mild reflux in the right saphenofemoral junction and in t he left external iliac vein and left common femoral vein.. IMPRESSION: No sonographic evidence for DVT in either lower extremity. Signer Name: Nikita Mcneal Jr, MD Signed: 06/13/2020 1:32 PM Workstation Name: [id number]
== END 2020-06-13 09:59 | disposition home or self-care (01) ==
LOC: VAS 09:58
PROVIDERS: ATTEND Surgery
DX: I87.313 Chronic venous hypertension (idiopathic) with ulcer of bilateral lower extremity (principal)
CPT/HCPCS: 93970

== ENCOUNTER 2020-06-18 13:14 | Outpatient (CLI) | payer MEDICARE, OTHER ==
[2020-06-18] MEDS ORDERED: LIDOCAINE (4%) 40 MG/ML TOPICAL SOLN 50 ML BOTTLE TP SCH (14:00)
[2020-06-18] MEDS ORDERED: VITAMIN A & D OINT 56.7 GM TP SCH (14:00)
== END 2020-06-18 13:15 | disposition home or self-care (01) ==
LOC: WOUND 13:14
PROVIDERS: ATTEND Surgery
DX: I87.313 Chronic venous hypertension (idiopathic) with ulcer of bilateral lower extremity (principal); L97.812 Non-pressure chronic ulcer of other part of right lower leg with fat layer exposed; L97.828 Non-pressure chronic ulcer of other part of left lower leg with other specified severity; I10 Essential (primary) hypertension; Z87.891 Personal history of nicotine dependence
CPT/HCPCS: 11042; A6250

== ENCOUNTER 2020-07-02 13:44 | Outpatient (CLI) | payer MEDICARE, OTHER ==
[2020-07-02] MEDS ORDERED: LIDOCAINE (4%) 40 MG/ML TOPICAL SOLN 50 ML BOTTLE TP ONE (13:57)
== END 2020-07-02 13:45 | disposition home or self-care (01) ==
LOC: WOUND 13:44
PROVIDERS: ATTEND Surgery
DX: I87.313 Chronic venous hypertension (idiopathic) with ulcer of bilateral lower extremity (principal); E11.622 Type 2 diabetes mellitus with other skin ulcer; L97.828 Non-pressure chronic ulcer of other part of left lower leg with other specified severity; L97.812 Non-pressure chronic ulcer of other part of right lower leg with fat layer exposed; I10 Essential (primary) hypertension; Z87.891 Personal history of nicotine dependence
CPT/HCPCS: 99213; G0463